=== PATIENT | female | born 2000 | race Caucasian/White ===

== ENCOUNTER 2024-07-05 18:08 | Emergency (ER) | payer OTHER, SELFPAY ==
[2024-07-05 18:18] VITALS: BP 139/95
[2024-07-05 18:38] LABS: % Basophils 0.9 % (0-2); % Eosinophils 1.6 % (0-6); % Immature Granulocytes 0.3 % (0-0.5); % Lymphocytes 29.7 % (20.5-51.1); % Monocytes 6.8 % (1.7-9.3); % Neutrophils 60.7 % (42.2-75.2); Absolute Basophils 0.1 10^3/uL (0-0.2); Absolute Eosinophils 0.2 10^3/uL (0-0.7); Absolute Lymphocytes 2.7 10^3/uL (1.2-3.4); Absolute Monocytes 0.6 10^3/uL (0.1-0.6); Absolute Neutrophils 5.6 10^3/uL (1.4-6.5); Hematocrit 37.8 % (37.0-47.0); Hemoglobin 12.8 g/dL (12.0-16.0); Mean Corp Hgb Conc. 33.9 g/dL (33.0-37.0); Mean Corpuscular Hgb 29.3 pg (27.0-31.0); Mean Corpuscular Volume 86.5 fL (81.0-99.0); Mean Platelet Volume 8.9 fL (7.4-10.4); Nucleated Red Blood Cells % 0 %; Platelet Count 459 10^3/uL (130-400); Red Blood Cell Count 4.37 10^6/uL (4.20-5.40); Red Cell Dist. Width 13.2 % (11.5-14.5); White Blood Cell Count 9.2 10^3/uL (4.8-10.8)
[2024-07-05 18:46] LABS: HCG, Serum Qualitative Screen Negative
[2024-07-05 18:52] LABS: ALT (SGPT) 12 U/L (0-35); AST (SGOT) 23 U/L (14-36); Albumin 4.7 g/dl (3.5-5.0); Alkaline Phosphatase 40 U/L (38-126); Blood Urea Nitrogen 14 mg/dl (7-17); Calcium 9.9 mg/dl (8.4-10.2); Carbon Dioxide 25 mmol/L (22-30); Chloride 104 mmol/L (98-107); Glucose 96 mg/dl (70-99); Potassium 4.3 mmol/L (3.5-5.1); Sodium 140 mmol/L (135-145); Total Bilirubin 1.4 mg/dl (0.2-1.3); Total Protein 7.7 g/dl (6.3-8.2); eGFR > 60.00
[2024-07-05 20:42] VITALS: BP 108/67
--- NOTE | 2024-07-05 21:16 | ED.GENMED ---
History of Present Illness
General
Chief Complaint: Facial Problem
Time Seen by Provider: 07/05/24 21:01
History of Present Illness
History of Present Illness:
24-year-old female with history of pituitary microadenoma presents to the emergency department for evaluation of various symptoms ongoing for the past several days. She reports a diffuse intractable headache for the past 3 days although this is
improved upon arrival to the ER. She had an episode of right facial numbness lasting 1 hour earlier today that prompted her ER visit. She also reports intermittent neck pain and 'lumps to the right side of the neck' that have improved in the past
few days. No fevers chills or night sweats. Not currently on any dopamine agonist for her pituitary microadenoma.
Past History
Social History
Tobacco: Non-smoker
Alcohol: None
Review of Systems
Review of Systems
Allergies reviewed?: Yes
All Other Systems: ROS reviewed and negative except as documented in HPI and ROS
Phy Exam
Physical Exam
Physical Exam:
GEN: Well appearing, NAD, WDWN
HEENT: Oral mucosa moist, no scleral icterus, no nasal congestion. Several thready, nonpathologic, nontender palpable lymph nodes to the right posterior cervical chain
Cardiac: Regular rate
Lung: No respiratory distress, no tachypnea
MSK: No gross deformity or injuries
Skin: Good color, no pallor or jaundice, no rashes
Neuro: AO x3; CN II-XII grossly intact. BUE strength 5/5 in all lowe, sensation intact and symmetric. BLE strength 5/5 in all lowe, sensation intact and symmetric
Psych: Calm, cooperative
Course
Orders/Labs/Results
Orders:
Orders
07/05/24 18:22
Electrocardiogram (*1) Urgent
Reason for Study: Syncope
EKG- Treatment ONCE
Test Result ONCE
07/05/24 18:29
Complete Blood Count/With Diff Urgent
Comprehensive Metabolic Panel Urgent
HCG, Serum Qualitative Screen Urgent
07/05/24 21:16
CT Head W/o Iv Contrast Urgent
Comment:
Reason For Exam: headache, R facial paresthesia
Abnormal Lab Results
07/05/24
18:29
Plt Count 459 H 10^3/uL
(130-400)
Total Bilirubin 1.4 H mg/dl
(0.2-1.3)
07/05/24 18:29
07/05/24 18:29
Vital Signs
Initial and Last Documented VS:
Initial Vital Signs
Temp Pulse Resp BP Pulse Ox
98.2 F 80 18 139/95 100
07/05/24 18:18 07/05/24 18:18 07/05/24 18:18 07/05/24 18:18 07/05/24 18:18
Last Documented Vital Signs
Temp Pulse Resp BP Pulse Ox
98.2 F 87 16 108/67 100
07/05/24 18:18 07/05/24 20:42 07/05/24 20:42 07/05/24 20:42 07/05/24 20:42
MDM/Problems Addressed
MDM/Problems Addressed:
Patient is neurologically intact at this time. I suspect that her headache associated right facial paresthesias was likely a migraine variant as opposed to a TIA given her age. Do not see any correlation between her reported symptoms and the known
pituitary microadenoma. Labs are reassuring, will provide prescription for Fioricet to treat headaches, she has a planned MRI upcoming in approximately 2 weeks
*Critical Care Note
Total Time (30-74mins, 75-104mins- exclusive of procedures): Not Applicable
ED Attending Note
-
Portions of this chart may have been created with voice recognition software.� Occasional wrong word or��sound alike� substitutions may have occurred due to the inherent limitations of voice recognition software.
Discharge Plan
Departure
Patient Disposition: Home (Routine Discharge)
Date of Disposition: 07/05/24
Time of Disposition: 22:13
Patient with high blood pressure during this ER visit?: No
Discharge Problem:
Atypical migraine
Instructions: Migraine in adults
Prescriptions:
New
[id number] [Fioricet] 50-300-40 mg capsule
1 cap PO Q8H PRN (Reason: headache) Qty: 12 0RF
Referrals:
Aminah Dunn MD [Family Provider] -
Activity Restrictions/Additional Instructions:
Continue with plan to obtain your MRI later this month
Follow up with your primary doctor if your headache symptoms continue
Interventions
Interventions:
*Risk Screen - Suicide Last Done: 07/05/24 18:18
*General Assessment Last Done: 07/05/24 18:18
*Neglect/Abuse Screening Last Done: 07/05/24 18:18
ED- Fall Risk Assessment Last Done: 07/05/24 20:39
*ED COVID-19 Vaccine History Last Done: 07/05/24 18:18
*Nursing Disposition Last Done: 07/05/24 22:20
ED- Neurological Assessment Last Done: 07/05/24 20:20
ED-Skin Assessment Last Done: 07/05/24 20:39
Discharge Date and Time
Discharge Date/Time: 07/05/24 22:22
Print Language: [id number]
== END 2024-07-05 22:22 | disposition home or self-care (01) ==
LOC: EMR 18:08
PROVIDERS: Emergency Medicine; EMERGENCY PHYSICIAN Emergency Medicine; FAMILY PHYSICIAN Student in an Organized Health Care Education/Training Program
DX: G43.009 Migraine without aura, not intractable, without status migrainosus (principal); R20.2 Paresthesia of skin; R59.0 Localized enlarged lymph nodes; R20.0 Anesthesia of skin; Z86.018 Personal history of other benign neoplasm; Z91.013 Allergy to seafood
CPT/HCPCS: 99284; 70450; 80053; 84703; 85025; 93005

== ENCOUNTER → 2024-07-27 16:52 | Outpatient (REF) | payer OTHER, SELFPAY | LOC: MRI 3T 16:52 | PROVIDERS: ATTENDING PHYSICIAN Internal Medicine Endocrinology, Diabetes & Metabolism; FAMILY PHYSICIAN Student in an Organized Health Care Education/Training Program | DX: D35.2 Benign neoplasm of pituitary gland (principal) | CPT/HCPCS: 70553; A9575 ==

== ENCOUNTER → 2024-08-16 10:17 | Outpatient (REF) | payer OTHER, SELFPAY | LOC: RAD 10:17 | PROVIDERS: ATTENDING PHYSICIAN Student in an Organized Health Care Education/Training Program | DX: M54.2 Cervicalgia (principal) | CPT/HCPCS: 72052 ==